=== PATIENT | male | born 1980 | race Hispanic/Latino ===

== ENCOUNTER 2023-09-03 19:50 | Emergency (ER) | payer SELFPAY ==
[2023-09-03] MEDS ORDERED: Aspirin Chewable 81 MG TAB ONE (20:29)
[2023-09-03] MEDS ORDERED: Lidocaine 2% Viscous 100 ML BOTTLE ONE (20:29)
[2023-09-03] MEDS ORDERED: Mag-Al Plus 1200/1200/120 MG (30 mL) UDCUP ONE (20:29)
[2023-09-03 20:51] LABS: INR-International Normal Ratio 1.1; PTT 30.3 sec (22.9-36.1); Prothrombin Time 14.2 sec (12.0-14.7)
[2023-09-03 20:53] LABS: Hematocrit 46.4 % (42.0-52.0); Hemoglobin 15.9 g/dL (14.0-18.0); Lymphocytes 62 % (21-51); MDiff Complete? YES; Mean Corpuscular HGB CONC 34.2 g/dL (32.0-36.0); Mean Corpuscular Hemoglobin 29.4 pg (27.0-31.0); Mean Platelet Volume 6.5 fL (7.4-10.4); Monocytes 3 % (0-10); Neutrophil 35 % (42-75); Platelet Adequacy Comment Appears Adequate; Platelet Count 245 10x3/uL (130-400); RBC Distribution Width 11.2 % (11.5-14.5); White Blood Cell (WBC) Count 5.9 10x3/uL (4.8-10.8)
[2023-09-03 21:00] LABS: Anion Gap 14 mmol/L (10-20); BUN (Urea Nitrogen) 11 mg/dL (8.9-20.6); Calc. Creatinine Clearance 0 mL/min (70-130); Calcium 8.7 mg/dL (7.8-10.44); Carbon Dioxide 22 mmol/L (22-29); Chloride 107 mmol/L (98-107); Estimated GFR 94; Glucose 123 mg/dL (70-105); Lipase 55 U/L (8-78); Potassium 3.4 mmol/L (3.5-5.1); Sodium 140 mmol/L (136-145)
[2023-09-03 21:01] LABS: Troponin I Less than 0.010 ng/mL (< 0.028)
== END 2023-09-03 21:20 | disposition home or self-care (01) ==
LOC: MADERS 19:50
DX: K21.9 Gastro-esophageal reflux disease without esophagitis (principal); M94.0 Chondrocostal junction syndrome [Tietze]; E87.6 Hypokalemia; F17.210 Nicotine dependence, cigarettes, uncomplicated
CPT/HCPCS: 71045; 80048; 83690; 83880; 84484; 85025; 85610; 85730; 93005